=== PATIENT | female | born 1975 | race American Indian/Alaskan Native ===

== ENCOUNTER 2017-12-23 11:48 | Emergency (ER) | payer SELFPAY ==
[2017-12-23 13:06] VITALS: BP 176/93
[2017-12-23] MEDS ORDERED: TORADOL IM ONE (19:19)
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
== END 2017-12-23 19:38 | disposition home or self-care (01) ==
LOC: ED 11:48
DX: M54.31 Sciatica, right side (principal); I10 Essential (primary) hypertension; E11.9 Type 2 diabetes mellitus without complications; K21.9 Gastro-esophageal reflux disease without esophagitis; Z98.51 Tubal ligation status; Z79.4 Long term (current) use of insulin
CPT/HCPCS: 96372; 99282; J1885

== ENCOUNTER 2019-12-29 15:27 | Emergency (ER) | payer MEDICAID ==
--- NOTE | 2019-12-29 15:51 | Emergency Department Report ---
Blank Doc - Documentation Documentation: 44-year-old female that presents with weakness and uncontrolled DM. Was sent by PCP for possible DKA. This initial assessment/diagnostic orders/clinical plan/treatment(s) is/are subject to change based on patient's health status, clinical progression and re- assessment by fellow clinical providers in the ED. Further treatment and workup at subsequent clinical providers discretion. Patient/guardians urged not to elope from the ED as their condition may be serious if not clinically assessed and managed. Initial orders include: 1- Patient sent to MAIN ED for further evaluation and treatment 2- labs
[2019-12-29 16:37] LABS: Basophils % (Auto) 0.4 % (0.0-1.8); Eosinophils # (Auto) 0.1 K/mm3 (0.0-0.4); Eosinophils % (Auto) 1.3 % (0.0-4.3); Hematocrit 32.8 % (30.3-42.9); Hemoglobin 10.7 gm/dl (10.1-14.3); Lymphocytes # (Auto) 1.5 K/mm3 (1.2-5.4); Lymphocytes % (Auto) 34.4 % (13.4-35.0); Mean Corpuscular HGB Conc 33 % (30-34); Mean Corpuscular Volume 83 fl (79-97); Monocytes # (Auto) 0.3 K/mm3 (0.0-0.8); Monocytes % (Auto) 7.2 % (0.0-7.3); Platelet Count 237 K/mm3 (140-440); Red Blood Count 3.94 M/mm3 (3.65-5.03); Red Cell Distribution Width 14.4 % (13.2-15.2)
[2019-12-29 16:45] LABS: Albumin 3.4 g/dL (3.9-5); Calcium 8.9 mg/dL (8.4-10.2)
[2019-12-29] MEDS ORDERED: INSULIN REGULAR, HUMAN 100 UNITS/1 ML ONE (17:30)
[2019-12-29] MEDS ORDERED: INSULIN REGULAR, HUMAN 100 UNIT/ML 3ML VIAL IV ONE (17:35)
[2019-12-29] MEDS ORDERED: METOPROLOL TARTRATE 5 MG/5 ML INJ IV ONE (17:35)
[2019-12-29] MEDS ORDERED: SODIUM CHLORIDE 0.9% 1000 ML 1,000 ML IV ONE (17:35)
[2019-12-29] MEDS ORDERED: ONDANSETRON 4 MG/2 ML INJ IV ONE ×2 (17:38→21:18)
--- NOTE | 2019-12-29 17:39 | Emergency Department Report ---
ED General Adult HPI - General Chief complaint: Weakness Stated complaint: SOB/CHEST PRESSURE Time Seen by Provider: 12/29/19 15:51 Source: patient Mode of arrival: Ambulatory Limitations: No Limitations - History of Present Illness Initial comments: Patient is 44-year-old female with history of hypertension, diabetes and hyperlipidemia. Patient was sent from her primary care office for evaluation of hyperglycemia and rule out DKA. Patient stated that she has been having generalized weakness for the last week. Patient also complaining of shortness of breath especially if she walks for a small distance. Patient also complaining of chest pressure on and off. Patient denied any fever or chills. She also stated that she has been nauseated but no vomiting. - Related Data Home Medications Medication Instructions Recorded Confirmed Last Taken Enalapril Maleate [Vasotec] 5 mg PO DAILY 12/24/12 12/24/12 Unknown Insulin NPH, Human [NovoLIN N] 100 unit SQ QHS 12/24/12 12/24/12 12/21/12 21:00 Insulin Regular, Human Inj PRN 12/24/12 12/24/12 12/22/12 08:00 [Novolin R Inj] Omeprazole [Prilosec] 40 mg PO QDAY 12/24/12 12/24/12 12/20/12 09:00 Previous Rx's Medication Instructions Recorded Last Taken Type Amoxicillin [Trimox CAP] 500 mg PO BID #21 capsule 12/24/12 Unknown Rx HYDROcodone/APAP 5-325 [[place] 1 each PO Q6HR PRN #10 tablet 01/12/15 Unknown Rx 5/325] Naproxen [Naprosyn] 500 mg PO Q12H #20 tablet 12/23/17 Unknown Rx Allergies Allergy/AdvReac Type Severity Reaction Status Date / Time No Known Allergies Allergy Unverified 12/24/12 12:56 ED Review of Systems ROS: Stated complaint: SOB/CHEST PRESSURE Other details as noted in HPI Comment: All other systems reviewed and negative Constitutional: denies: chills, fever Respiratory: denies: cough, shortness of breath, SOB with exertion, SOB at rest, wheezing Cardiovascular: chest pain. denies: palpitations Gastrointestinal: nausea. denies: abdominal pain, vomiting, diarrhea, consti pation, hematemesis, melena, hematochezia Musculoskeletal: denies: back pain Neurological: weakness (generalized). denies: headache, numbness, paresthesias, confusion, abnormal gait ED Past Medical Hx - Past Medical History Previous Medical History?: Yes Hx Hypertension: Yes Hx Diabetes: Yes Hx GERD: Yes Additional medical history: cholesterol - Surgical History Past Surgical History?: Yes Additional Surgical History: tubal ligation - Social History Smoking Status: Never Smoker Substance Use Type: None - Medications Home Medications: Home Medications Medication Instructions Recorded Confirmed Last Taken Type Amoxicillin [Trimox CAP] 500 mg PO BID #21 capsule 12/24/12 Unknown Rx Enalapril Maleate [Vasotec] 5 mg PO DAILY 12/24/12 12/24/12 Unknown History Insulin NPH, Human [NovoLIN N] 100 unit SQ QHS 12/24/12 12/24/12 12/21/12 21:00 History Insulin Regular, Human Inj PRN 12/24/12 12/24/12 12/22/12 08:00 History [Novolin R Inj] Omeprazole [Prilosec] 40 mg PO QDAY 12/24/12 12/24/12 12/20/12 09:00 History HYDROcodone/APAP 5-325 [[place] 1 each PO Q6HR PRN #10 tablet 01/12/15 Unknown Rx 5/325] Naproxen [Naprosyn] 500 mg PO Q12H #20 tablet 12/23/17 Unknown Rx ED Physical Exam - General Limitations: No Limitations General appearance: alert, in no apparent distress - Head Head exam: Present: atraumatic, normocephalic, normal inspection - Eye Eye exam: Present: normal appearance - ENT ENT exam: Present: mucous membranes dry - Neck Neck exam: Present: normal inspection, full ROM. Absent: tenderness, meningismus, lymphadenopathy, thyromegaly - Respiratory Respiratory exam: Present: normal lung sounds bilaterally - Cardiovascular Cardiovascular Exam: Present: tachycardia - GI/Abdominal GI/Abdominal exam: Present: soft, normal bowel sounds. Absent: distended, tenderness, guarding, rebound, rigid, organomegaly, mass, bruit, pulsatile mass, hernia - Extremities Exam Extremities exam: Present: normal inspection, full ROM, normal capillary refill. Absent: tenderness, pedal edema, calf tenderness - Back Exam Back exam: Present: normal inspection, full ROM. Absent: CVA tenderness (R), CVA tenderness (L) - Neurological Exam Neurological exam: Present: alert, oriented X3, CN II-XII intact, normal gait, reflexes normal - Psychiatric Psychiatric exam: Present: normal affect - Skin Skin exam: Present: warm, intact, normal color ED Course Vital Signs 12/29/19 12/29/19 12/29/19 15:50 17:48 18:20 Temperature 98 F Pulse Rate 104 H 92 H Respiratory 20 18 Rate Blood Pressure 171/99 Blood Pressure 225/104 [Right] O2 Sat by Pulse 100 100 Oximetry 12/29/19 23:24 Temperature Pulse Rate 89 Respiratory Rate Blood Pressure Blood Pressure [Right] O2 Sat by Pulse Oximetry ED Medical Decision Making - Lab Data Result diagrams: 12/29/19 16:05 12/29/19 16:05 - EKG Data -: EKG Interpreted by Ut EKG shows normal: sinus rhythm Rate: normal - EKG Data Interpretation: no acute changes - Radiology Data Radiology results: report reviewed - Medical Decision Making Patient is 44-year-old female with history of hypertension, diabetes and hyperlipidemia. Patient was sent from her primary care office for evaluation of hyperglycemia and rule out DKA. Patient stated that she has been having generalized weakness for the last week. Patient also complaining of shortness of breath especially if she walks for a small distance. Patient also complaining of chest pressure on and off. Patient denied any fever or chills. She also stated that she has been nauseated but no vomiting. Patient received normal saline and 5 units of regular insulin IV. Blood sugar currently 250. EKG showed sinus rhythm with no ST elevation. Chest x-ray is unremarkable. Labs reviewed and show elevated blood glucose however there is no evidence of DKA. Patient stated that she is feeling much better. Patient d- dimer came back elevated and patient had a CTA chest showed no evidence of pulmonary embolism or aneurysm. Patient advised to follow-up with her primary doctor in the next 2 to 3 days and also to watch for her diabetic diet. Patient advised to return to the ER if symptoms are not improved. Critical care attestation.: If time is entered above; I have spent that time in minutes in the direct care of this critically ill patient, excluding procedure time. ED Disposition Clinical Impression: Acute hyperglycemia, Generalized weakness, Shortness of breath Disposition: DC-01 TO HOME OR SELFCARE Is pt being admited?: No Condition: Stable Instructions: Diabetic Hyperglycemia (ED), Weakness (ED) Referrals: APOLINAR STEPHENS MD [Staff Physician] - 3-5 Days
--- NOTE | 2019-12-29 17:56 | XRay Report ---
CHEST 1 VIEW 12/29/2019 5:33 PM INDICATION / CLINICAL INFORMATION: chest pain. COMPARISON: None available. FINDINGS: SUPPORT DEVICES: None. HEART / MEDIASTINUM: No significant abnormality. LUNGS / PLEURA: No significant pulmonary or pleural abnormality. No pneumothorax. ADDITIONAL FINDINGS: No significant additional findings. IMPRESSION: 1. No acute findings. Signer Name: Sean Hubbard MD Signed: 12/29/2019 5:52 PM Workstation Name: [id number]
[2019-12-29 18:15] LABS: INR 0.97 (0.87-1.13)
[2019-12-29 18:25] LABS: Alanine Aminotransferase 14 units/L (7-56); Albumin 3.4 g/dL (3.9-5)
[2019-12-29 18:33] LABS: Bilirubin,Direct < 0.2 mg/dL (0-0.2)
[2019-12-29] MEDS ORDERED: ONDANSETRON 4 MG/2 ML INJ ONE (21:21)
--- NOTE | 2019-12-29 23:06 | Cat Scan Report ---
CT angio chest INDICATION / CLINICAL INFORMATION: Chest pain with shortness of breath. TECHNIQUE: Axial CT images were obtained after injection of Omnipaque 350, 100 cc IV contrast using CTA protocol . 3 plane MIP / 3D reconstructions were produced. All CT scans at this location are performed using C T dose reduction for ALARA by means of automated exposure control. COMPARISON: None available. FINDINGS: The lungs contain no mass, infiltrate or pleural fluid. No mediastinal mass or adenopathy. Negative for aneurysm, dissection or pulmonary embolus. IMPRESSION: Negative CTA chest. Signer Name: Jovan Mixon MD Signed: 12/29/2019 11:02 PM Workstation Name: [id number]
[2019-12-30 00:39] VITALS: BP 155/70
== END 2019-12-30 00:24 | disposition home or self-care (01) ==
LOC: ED 15:27
DX: E11.65 Type 2 diabetes mellitus with hyperglycemia (principal); R53.1 Weakness; R06.02 Shortness of breath; I10 Essential (primary) hypertension; K21.9 Gastro-esophageal reflux disease without esophagitis; Z98.51 Tubal ligation status; Z79.899 Other long term (current) drug therapy
CPT/HCPCS: 36415; 71045; 71275; 80053; 80076; 82805; 82962; 83880; 84484; 84703; 85025; 85379; 85610; 85730; 93005; 96361; 96374; 96375; 96376; 99285; J2405; J7030; Q9967; J1815